=== PATIENT | male | born 1970 | race Caucasian/White ===

== ENCOUNTER 2017-04-07 17:16 | Emergency (ER) | payer BC ==
[2017-04-07 17:23] VITALS: RESP 16; TEMP 97.5
[2017-04-07] MEDS ORDERED: ASPIRIN 81 MG CHEWABLE TAB PO ONE (17:39)
[2017-04-07] MEDS ORDERED: NS 1,000 ML IV ONE (17:39)
--- NOTE | 2017-04-07 17:42 | EDPHY ---
H & P Time Seen by Provider: 04/07/17 17:30 HPI/ROS: CHIEF COMPLAINT: Tingling HISTORY OF PRESENT ILLNESS: Patient is a 46-year-old man who comes to the emergency department complaining of unusual breathing and tingling in both arms , chest and upper lip. He states that for the last 3 weeks he has had episodes where he wakes up at night feeling short of breath. He saw his primary Dr. Luna who ordered an EKG on Tuesday that was normal. On Tuesday he had a cardiac CT scan and Dopplers of his carotid arteries. He reports that his calcium score is high at 162 and the Dopplers were normal. They have a stress test planned for Tuesday. He has a grandfather at age 40 from myocardial infarction. Patient had never had these symptoms before during the day. Today while driving home from work he felt a sudden urge to take several deep breaths. He did not feel short of breath per se. He denies chest pain. He then became sweaty and slightly lightheaded. No nausea vomiting. No recent fevers or illness. Recent travel. Nonsmoker. Does not have high cholesterol. REVIEW OF SYSTEMS: Constitutional: denies: chills, fever, recent illness, recent injury EENTM: denies: blurred vision, double vision, nose congestion Respiratory: denies: cough, shortness of breath Cardiac: See HPI Gastrointestinal/Abdominal: denies: abdominal pain, diarrhea, nausea, vomiting, blood streaked stools Genitourinary: denies: dysuria, frequency, hematuria, pain Musculoskeletal: denies: joint pain, muscle pain Skin: denies: lesions, rash, jaundice, bruising Neurological: denies: headache, numbness, paresthesia, tingling, dizziness, weakness Hematologic/Lymphatic: denies: blood clots, easy bleeding, easy bruising Immunologic/allergic: denies: HIV/AIDS, transplant EXAM: GENERAL: Well-appearing, well-nourished and in no acute distress. HEAD: Atraumatic, normocephalic. EYES: Pupils equal round and reactive to light, extraocular movements intact, sclera anicteric, conjunctiva are normal. ENT: TMs normal, nares patent, oropharynx clear without exudates. Moist mucous membranes. NECK: Normal range of motion, supple without lymphadenopathy or JVD. LUNGS: Breath sounds clear to auscultation bilaterally and equal. No wheezes rales or rhonchi. HEART: Regular rate and rhythm without murmurs, rubs or gallops. ABDOMEN: Soft, nontender, normoactive bowel sounds. No guarding, no rebound. No masses appreciated. BACK: No CVA tenderness, no spinal tenderness, step-offs or deformities EXTREMITIES: Normal range of motion, no pitting or edema. No clubbing or cyanosis. NEUROLOGICAL: Cranial nerves II through XII grossly intact. Normal speech, normal gait. 5/5 strength, normal movement in all extremities, normal sensation PSYCH: Normal mood, normal affect. SKIN: Warm, dry, normal turgor, no visible rashes or lesions. Source: Patient Exam Limitations: No limitations - Personal History Current Tetanus Diphtheria and Acellular Pertussis (TDAP): Yes - Medical/Surgical History Hx Asthma: No Hx Chronic Respiratory Disease: No Hx Diabetes: No Hx Cardiac Disease: No Hx Renal Disease: No Hx Cirrhosis: No Hx Alcoholism: No Hx HIV/AIDS: No Hx Splenectomy or Spleen Trauma: No Other PMH: none - Family History Significant Family History: No pertinent family hx - Social History Smoking Status: Never smoked Alcohol Use: Sober Drug Use: None Constitutional: Initial Vital Signs Temperature (C) 36.4 C 04/07/17 17:20 Heart Rate 63 04/07/17 17:20 Respiratory Rate 16 04/07/17 17:20 Blood Pressure 161/84 H 04/07/17 17:20 O2 Sat (%) 100 04/07/17 17:20 O2 Delivery Mode Room Air Allergies/Adverse Reactions: No Known Allergies Allergy (Unverified 04/07/17 17:18) Home Medications: Medication Instructions Recorded Aspirin 04/07/17 Medical Decision Making - Diagnostics Imaging Results: Imaging Impressions Chest X-Ray 04/07/17 17:39 Impression: Peribronchial thickening suggesting bronchitis/airways disease with mild basilar atelectasis. Imaging: Discussed imaging studies w/ hearing aid specialist Radiologist ED Course/Re-evaluation: 7:40 p.m. I had a long discussion with the patient and his . We discussed negative testing thus far. I recommended admission versus 4 hour troponin. The patient declines and states that he thinks this is mostly stress and anxiety. He has a stress test scheduled for Tuesday. He understands the risks involved in that we cannot rule out cardiac disease at this point. He will return if his symptoms worsen or return. Differential Diagnosis: Partial list of the Differential diagnosis considered include but were not limited to; acute coronary disease, anxiety and although unlikely based on the history and physical exam, I also considered PE, arrhythmia, pneumonia, pneumothorax, pericarditis, endocarditis. I discussed these differential diagnoses and the plan with the patient as well as the usual and expected course. The patient understands that the diagnosis is provisional and that in medicine we are not always correct and that further workup is often warranted. Usual and customary warnings were given. All of the patient's questions were answered. The patient was instructed to return to the emergency department should the symptoms at all worsen or return, otherwise to followup with the physician as we discussed. - Data Points Laboratory Results: Laboratory Results 04/07/17 17:50 04/07/17 17:50 04/07/17 04/07/17 04/07/17 17:50 17:50 17:50 WBC 8.74 10^3/uL 10^3/uL (3.80-9.50) RBC 5.42 10^6/uL 10^6/uL (4.40-6.38) Hgb 16.7 g/dL g/dL (13.7-17.5) Hct 47.6 % % (40.0-51.0) MCV 87.8 fL fL (81.5-99.8) MCH 30.8 pg pg (27.9-34.1) MCHC 35.1 g/dL g/dL (32.4-36.7) RDW 12.2 % % (11.5-15.2) Plt Count 221 10^3/uL 10^3/uL (150-400) MPV 9.8 fL fL (8.7-11.7) Neut % (Auto) 58.6 % % (39.3-74.2) Lymph % (Auto) 32.8 % % (15.0-45.0) [place] % (Auto) 6.4 % % (4.5-13.0) Eos % (Auto) 1.5 % % (0.6-7.6) Baso % (Auto) 0.6 % % (0.3-1.7) Nucleat RBC Rel Count 0.0 % % (0.0-0.2) Absolute Neuts (auto) 5.12 10^3/uL 10^3/uL (1.70-6.50) Absolute Lymphs (auto) 2.87 10^3/uL 10^3/uL (1.00-3.00) Absolute Monos (auto) 0.56 10^3/uL 10^3/uL (0.30-0.80) Absolute Eos (auto) 0.13 10^3/uL 10^3/uL (0.03-0.40) Absolute Basos (auto) 0.05 10^3/uL 10^3/uL (0.02-0.10) Absolute Nucleated RBC 0.00 10^3/uL 10^3/uL (0-0.01) Immature Gran % 0.1 % % (0.0-1.1) Immature Gran # 0.01 10^3/uL 10^3/uL (0.00-0.10) D-Dimer < 0.27 ug/mLFEU ug/mLFEU (0.00-0.50) Sodium 141 mEq/L mEq/L (134-144) Potassium 3.7 mEq/L mEq/L (3.5-5.2) Chloride 100 mEq/L mEq/L (97-110) Carbon Dioxide 27 mEq/l mEq/l (22-31) Anion Gap 14 mEq/L mEq/L (8-16) BUN 20 mg/dL mg/dL (7-23) Creatinine 1.3 mg/dL mg/dL (0.7-1.3) Estimated GFR 60 Glucose 134 mg/dL H mg/dL (70-100) Calcium 10.0 mg/dL mg/dL (8.5-10.4) Troponin I < 0.012 ng/mL ng/mL (0.000-0.034) Medications Given: Discontinued Medications Aspirin (Aspirin) 324 mg PO EDNOW ONE Stop: 04/07/17 17:40 Last Admin: 04/07/17 17:59 Dose: 324 mg Sodium Chloride (Ns) 1,000 mls @ 0 mls/hr IV EDNOW ONE; Wide Open PRN Reason: Protocol Stop: 04/07/17 17:40 Last Admin: 04/07/17 17:57 Dose: 1,000 mls Departure - Departure Disposition: Home, Routine, Self-Care Clinical Impression: Chest pain Qualifiers: Chest pain type: unspecified Qualified Code(s): R07.9 - Chest pain, unspecified Condition: Fair Instructions: Chest Pain (ED) Referrals: Jie Luna MD [Primary Care Provider] - As per Instructions
--- NOTE | 2017-04-07 17:43 | CPEKG ---
Heart Rate: 59 RR Interval: 1017 P-R Interval: 156 QRSD Interval: 100 QT Interval: 432 QTC Interval: 428 P [place]: 61 QRS [place]: 77 T Wave [place]: 11 EKG Severity - NORMAL ECG - EKG Impression: SINUS RHYTHM Electronically Signed By: Chad Henson 08-Apr-2017 07:37:43
[2017-04-07 18:01] LABS: % IMMATURE GRANULYOCYTES 0.1 % (0.0-1.1); ABSOLUTE IMMATURE GRANULOCYTES 0.01 10^3/uL (0.00-0.10); ADD DIFF? NO; ADD MORPH? NO; ADD SCAN? NO; ATYPICAL LYMPHOCYTE FLAG 10 (0-99); FRAGMENT RBC FLAG 0 (0-99); HEMATOCRIT 47.6 % (40.0-51.0); HEMOGLOBIN 16.7 g/dL (13.7-17.5); LEFT SHIFT FLG 0 (0-99); LIPEMIA HEMOLYSIS FLAG 90 (0-99); MEAN CELL HEMOGLOBIN 30.8 pg (27.9-34.1); MEAN CELL HEMOGLOBIN CONCENTR. 35.1 g/dL (32.4-36.7); MEAN CELL VOLUME 87.8 fL (81.5-99.8); MEAN PLATELET VOLUME 9.8 fL (8.7-11.7); PLATELET CLUMPS FLAG 0 (0-99); PLATELET COUNT 221 10^3/uL (150-400); RED BLOOD CELL COUNT 5.42 10^6/uL (4.40-6.38); RED CELL DISTRIBUTION WIDTH 12.2 % (11.5-15.2)
[2017-04-07 18:11] LABS: ANION GAP 14 mEq/L (8-16); CARBON DIOXIDE 27 mEq/l (22-31); CHLORIDE 100 mEq/L (97-110); CREATININE 1.3 mg/dL (0.7-1.3); GLOMERULAR FILTRATION RATE 60; GLUCOSE 134 mg/dL (70-100); POTASSIUM 3.7 mEq/L (3.5-5.2); SODIUM 141 mEq/L (134-144)
[2017-04-07 18:23] LABS: TROPONIN I < 0.012 ng/mL (0.000-0.034)
[2017-04-07 20:19] VITALS: BP 124/74; PULSE 62; O2SAT 98
== END 2017-04-07 20:19 | disposition home or self-care (01) ==
PROC: 3E0337Z Introduction of Electrolytic and Water Balance Substance into Peripheral Vein, Percutaneous Approach (ICD-10-PCS; principal; 2017-04-07)
DX: R07.9 Chest pain, unspecified (principal); E86.9 Volume depletion, unspecified; Z79.82 Long term (current) use of aspirin

== ENCOUNTER 2017-05-31 08:14 | Day surgery (SDC) | payer BC ==
[2017-05-31] MEDS ORDERED: ASPIRIN EC 325 MG TAB PO ONE ×2 (08:18→08:36)
[2017-05-31] MEDS ORDERED: DIAZEPAM 5 MG TAB PO ONE (08:18)
[2017-05-31] MEDS ORDERED: diphenhydrAMINE 25 MG CAP PO ONE ×2 (08:18→08:36)
[2017-05-31] MEDS ORDERED: FAMOTIDINE 20 MG TAB PO ONE (08:18)
[2017-05-31] MEDS ORDERED: NS 1,000 ML IV ONE (08:18)
--- NOTE | 2017-05-31 08:32 | CPEKG ---
Heart Rate: 55 RR Interval: 1091 P-R Interval: 172 QRSD Interval: 100 QT Interval: 420 QTC Interval: 402 P [place]: 53 QRS [place]: 95 T Wave [place]: 10 EKG Severity - ABNORMAL ECG - EKG Impression: SINUS RHYTHM EKG Impression: LEFT POSTERIOR FASCICULAR BLOCK EKG Impression: COMPARED WITH 04/07/2017, AXIS IS MORE RIGHTWARD Electronically Signed By: Cristin Montano 31-May-2017 18:44:52
[2017-05-31] MEDS ORDERED: FAMOTIDINE 20 MG TAB ONE (08:36)
[2017-05-31] MEDS ORDERED: DIAZEPAM 5 MG TAB ONE (08:37)
[2017-05-31 08:48] LABS: % IMMATURE GRANULYOCYTES 0.2 % (0.0-1.1); ABSOLUTE IMMATURE GRANULOCYTES 0.01 10^3/uL (0.00-0.10); ADD DIFF? NO; ADD MORPH? NO; ADD SCAN? NO; ATYPICAL LYMPHOCYTE FLAG 0 (0-99); FRAGMENT RBC FLAG 0 (0-99); HEMATOCRIT 43.7 % (40.0-51.0); HEMOGLOBIN 15.3 g/dL (13.7-17.5); LEFT SHIFT FLG 0 (0-99); LIPEMIA HEMOLYSIS FLAG 90 (0-99); MEAN CELL HEMOGLOBIN 30.8 pg (27.9-34.1); MEAN CELL VOLUME 87.9 fL (81.5-99.8); MEAN PLATELET VOLUME 9.5 fL (8.7-11.7); PLATELET CLUMPS FLAG 10 (0-99); PLATELET COUNT 187 10^3/uL (150-400); RED BLOOD CELL COUNT 4.97 10^6/uL (4.40-6.38); RED CELL DISTRIBUTION WIDTH 12.7 % (11.5-15.2)
[2017-05-31] MEDS ORDERED: fentaNYL 100 MCG/2 ML INJ ONE (08:58)
[2017-05-31] MEDS ORDERED: LIDOCAINE 1% 300 MG/30 ML SDV ONE (08:58)
[2017-05-31] MEDS ORDERED: MIDAZOLAM 2 MG/2 ML VIAL ONE (08:58)
[2017-05-31] MEDS ORDERED: IOPAMIDOL (ISOVUE-370) 150 ML BTL IV ONE (08:58)
[2017-05-31 09:05] LABS: ANION GAP 11 mEq/L (8-16); CALCIUM 9.3 mg/dL (8.5-10.4); CARBON DIOXIDE 27 mEq/l (22-31); CHLORIDE 104 mEq/L (97-110); CHOLESTEROL 101 mg/dL (140-200); CHOLESTEROL/HDL RATIO 2.02 RATIO (1.00-4.97); CREATININE 1.2 mg/dL (0.7-1.3); GLOMERULAR FILTRATION RATE > 60; GLUCOSE 112 mg/dL (70-100); HIGH DENSITY LIPOPROTEIN 50 mg/dL (40-65); LOW DENSITY LIPOPROTEIN 40 mg/dL (70-100); NON-HIGH DENSITY LIPOPROTEIN 51 mg/dL (90-129); POTASSIUM 4.3 mEq/L (3.5-5.2); SODIUM 142 mEq/L (134-144); TRIGLYCERIDE 58 mg/dL (40-150); VERY LOW DENSITY LIPOPROTEINS 11 mg/dL (8-25)
[2017-05-31 09:09] LABS: INR 0.99 (0.83-1.16); PROTIME(PATIENT) 13.3 SEC (12.0-15.0)
[2017-05-31] MEDS ORDERED: VERAPAMIL 5 MG/2 ML VIAL ONE (09:28)
[2017-05-31] MEDS ORDERED: HEPARIN 10,000 UNIT/10 ML MDV ONE (09:28)
--- NOTE | 2017-05-31 09:30 | PDPROPOC ---
Sedation Plan of Care Sedation Plan of Care: vital signs stable, mental status noted, patient educated of risks, benefits, alternatives, patient can tolerate sedation ASA Classification: ASA 2 Planned drugs: fentanyl, midazolam Mallampati Score: Class 1 Mallampati Reference Image: Patient passed 3-3-2 rule?: Yes
--- NOTE | 2017-05-31 09:35 | PDGENHP ---
History and Physical - Chief Complaint Chest pain - History of Present Illness 46-year-old male no prior cardiovascular history with a 2 month history of intermittent substernal chest pressure associated with tingling left jaw pain and lip numbness here for diagnostic angiogram. He was seen clinically. Symptoms occurred at rest at night. He had no exertional complaints. He had an exercise tolerance test at the [facility]. I do not have the results of that test other than he went 13 minutes he had no EKG changes concerning for ischemia no symptoms and normal hemodynamic response. He has continued to have symptoms and has been seen in the emergency department and is referred for diagnostic test. He had known coronary disease diagnosed by CT scanning with a calcium score of 162. Family history includes of paternal grandfather dying at 40 with myocardial infarction paternal grandmother with stents early in life. He has a history of borderline diabetes, history of borderline hypertension, history of hyperlipidemia. He is a nonsmoker. History Information - Allergies/Home Medication List Allergies/Adverse Reactions: No Known Allergies Allergy (Unverified 04/07/17 17:18) Home Medications: Aspirin 81 mg PO DAILY 04/07/17 [Last Taken 05/30/17 21:00] Rosuvastatin Calcium 40 mg PO DAILY 05/31/17 [Last Taken 05/30/17 21:00] I have personally reviewed and updated: family history, medical history, social history, surgical history - Social History Smoking Status: Never smoked Alcohol Use: None Drug Use: None Review of Systems Review of Systems: Constitutional: Reports: no symptoms EENMT: Reports: no symptoms Respiratory: Reports: no symptoms Gastrointestinal: Reports: no symptoms Genitourinary: Reports: no symptoms Muscolosketal: Reports: no symptoms Skin: Reports: no symptoms Neurological: Reports: no symptoms Hematologic/Lymphatic: Reports: no symptoms Immunologic/Allergy: Reports: no symptoms Physical Exam Physical Exam: Constitutional: no apparent distress Eyes: PERRL Ears, Nose, Mouth, Throat: moist mucous membranes Cardiovascular: regular rate and rhythym, no murmur, rub, or gallop, No systolic murmur Peripheral Pulses: 1+: carotid (R), carotid (L), femoral (R), femoral (L) Respiratory: no respiratory distress Gastrointestinal: normoactive bowel sounds, soft, non-tender abdomen, no palpable masses Genitourinary: no bladder fullness Skin: warm Musculoskeletal: full muscle strength Neurologic: AAOx3, sensation intact bilaterally Psychiatric: interacting appropriately Lymph, Heme, Immunologic: no cervical LAD, no supraclavicular LAD Lab Data & Imaging Review 05/31/17 08:35 05/31/17 08:35 WBC 5.81 10^3/uL (3.80-9.50) 05/31/17 08:35 RBC 4.97 10^6/uL (4.40-6.38) 05/31/17 08:35 Hgb 15.3 g/dL (13.7-17.5) 05/31/17 08:35 Hct 43.7 % (40.0-51.0) 05/31/17 08:35 MCV 87.9 fL (81.5-99.8) 05/31/17 08:35 MCH 30.8 pg (27.9-34.1) 05/31/17 08:35 MCHC 35.0 g/dL (32.4-36.7) 05/31/17 08:35 RDW 12.7 % (11.5-15.2) 05/31/17 08:35 Plt Count 187 10^3/uL (150-400) 05/31/17 08:35 MPV 9.5 fL (8.7-11.7) 05/31/17 08:35 Neut % (Auto) 53.0 % (39.3-74.2) 05/31/17 08:35 Lymph % (Auto) 33.7 % (15.0-45.0) 05/31/17 08:35 [place] % (Auto) 9.3 % (4.5-13.0) 05/31/17 08:35 Eos % (Auto) 2.9 % (0.6-7.6) 05/31/17 08:35 Baso % (Auto) 0.9 % (0.3-1.7) 05/31/17 08:35 Nucleat RBC Rel Count 0.0 % (0.0-0.2) 05/31/17 08:35 Absolute Neuts (auto) 3.08 10^3/uL (1.70-6.50) 05/31/17 08:35 Absolute Lymphs (auto) 1.96 10^3/uL (1.00-3.00) 05/31/17 08:35 Absolute Monos (auto) 0.54 10^3/uL (0.30-0.80) 05/31/17 08:35 Absolute Eos (auto) 0.17 10^3/uL (0.03-0.40) 05/31/17 08:35 Absolute Basos (auto) 0.05 10^3/uL (0.02-0.10) 05/31/17 08:35 Absolute Nucleated RBC 0.00 10^3/uL (0-0.01) 05/31/17 08:35 Immature Gran % 0.2 % (0.0-1.1) 05/31/17 08:35 Immature Gran # 0.01 10^3/uL (0.00-0.10) 05/31/17 08:35 PT 13.3 SEC (12.0-15.0) 05/31/17 08:35 INR 0.99 (0.83-1.16) 05/31/17 08:35 Sodium 142 mEq/L (134-144) 05/31/17 08:35 Potassium 4.3 mEq/L (3.5-5.2) 05/31/17 08:35 Chloride 104 mEq/L (97-110) 05/31/17 08:35 Carbon Dioxide 27 mEq/l (22-31) 05/31/17 08:35 Anion Gap 11 mEq/L (8-16) 05/31/17 08:35 BUN 19 mg/dL (7-23) 05/31/17 08:35 Creatinine 1.2 mg/dL (0.7-1.3) 05/31/17 08:35 Estimated GFR > 60 05/31/17 08:35 Glucose 112 mg/dL (70-100) H 05/31/17 08:35 Calcium 9.3 mg/dL (8.5-10.4) 05/31/17 08:35 Magnesium 2.0 mg/dL (1.6-2.3) 05/31/17 08:35 Triglycerides 58 mg/dL (40-150) 05/31/17 08:35 Cholesterol 101 mg/dL (140-200) L 05/31/17 08:35 Cholesterol Risk Factr 0.4 (0.2-1.0) 05/31/17 08:35 LDL Cholesterol, Calc 40 mg/dL (70-100) L 05/31/17 08:35 LDL Risk Factor 0.4 (0.2-1.0) 05/31/17 08:35 VLDL Cholesterol 11 mg/dL (8-25) 05/31/17 08:35 Non-HDL Cholesterol 51 mg/dL (90-129) L 05/31/17 08:35 HDL Cholesterol 50 mg/dL (40-65) 05/31/17 08:35 LDL/HDL Ratio 0.80 RATIO (1.00-3.64) L 05/31/17 08:35 Cholesterol/HDL Ratio 2.02 RATIO (1.00-4.97) 05/31/17 08:35 EKG Interpretation: Positive for: normal sinsus rhythm Assessment & Plan Assessment: 46-year-old male known coronary disease by CT scanning, positive family history , diabetes, hypertension, hyperlipidemia with atypical symptoms associated with a low risk treadmill agree with diagnostic angiogram today done from the right radial artery. Risks and benefits were discussed. Will proceed. Continue aspirin statin therapy.
[2017-05-31] MEDS ORDERED: NITROGLYCERIN 0.4 MG BTL SL PRN (10:14)
[2017-05-31] MEDS ORDERED: ATROPINE SULFATE 1 MG/10 ML SYR IVP PRN (10:14)
--- NOTE | 2017-05-31 10:19 | PDDXCAT ---
Diagnostic Cath Note - . Date: 05/31/17 Dx Board Operator: Manan Indication: CCC Class III and IV angina on medical treatment, other (Low risk ETT with ER visits.) - Procedure Access: right wrist Procedure: left heart catheterization, coronary angiography, left ventriculogram - Materials Left Heart Cath size: 5F Left Heart Cath materials: pigtail, other ([email or web address]) - Findings-Left Heart Catheterization LM: Normal LAD: Normal LCX: Dominant: Normal RCA: Non Dominant: Normal EDP: 15 mmHg LVEF: 65% Wall motion: Normal Complications: none Estimated blood loss: <50ml Closure method: TR Band Assessment: Mild non-obstructive coronary artery disease. Normal LV systolic function. Plan: Aggressive secondary prevention Patient Problems: Problems Problem Status Onset Coronary artery disease Acute
== END 2017-05-31 14:55 | disposition home or self-care (01) ==
LOC: FCATH 08:14
PROVIDERS: ATTEND Internal Medicine Interventional Cardiology
PROC: B2151ZZ Fluoroscopy of Left Heart using Low Osmolar Contrast (ICD-10-PCS; principal; 2017-05-31)
PROC: 4A023N7 Measurement of Cardiac Sampling and Pressure, Left Heart, Percutaneous Approach (ICD-10-PCS; principal; 2017-05-31)
PROC: B2111ZZ Fluoroscopy of Multiple Coronary Arteries using Low Osmolar Contrast (ICD-10-PCS; principal; 2017-05-31)
DX: R07.9 Chest pain, unspecified (principal); Z82.49 Family history of ischemic heart disease and other diseases of the circulatory system
CPT/HCPCS: 93005; 93458; C1769; J1644; J2250; J3010; Q9967